=== PATIENT | female | born 1950 | race Caucasian/White ===

== ENCOUNTER 2017-10-07 17:43 | Inpatient (IN) ==
[2017-10-07] MEDS ORDERED: ceFAZolin 2 GM Premix Inj 2 GM/50 ML PIGGYBACK IV.SIG ONE (17:48)
[2017-10-07] MEDS ORDERED: Morphine Inj 4 MG/ML Vial ONE ×2 (17:48→17:51)
[2017-10-07] MEDS ORDERED: Diphtheria/Tetanus/Pertussis Vaccine Inj 0.5 ML Syringe IM ONE (17:49)
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
[2017-10-07] MEDS ORDERED: Naloxone Inj 0.4 MG/ML Vial IV.PUSH PRN (17:59)
[2017-10-07] MEDS ORDERED: Bisacodyl 10 MG Supp RECTAL PRN (17:59)
[2017-10-07] MEDS ORDERED: Post-op Orders (for Pharmacy) OTHER ONE (17:59)
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
[2017-10-07 18:09] LABS: Baso % (Auto) 0.3 % (0.0-2.0); Eos # (Auto) 0.1 th/mm3 (0.0-0.4); Eos % (Auto) 1.2 % (0.0-4.0); Hematocrit 36.7 % (35.0-46.0); Hemoglobin 12.2 gm/dL (11.6-15.3); Lymph # (Auto) 2.3 th/mm3 (1.0-4.8); Lymph % (Auto) 19.4 % (9.0-44.0); Mean Corpuscular HGB Conc 33.4 % (32.0-36.0); Mean Corpuscular Hemoglobin 28.6 pg (27.0-34.0); Mean Corpuscular Volume 85.6 fL (80.0-100.0); Mean Platelet Volume 8.4 fL (7.0-11.0); Mono # (Auto) 0.6 th/mm3 (0.0-0.9); Mono % (Auto) 5.2 % (0.0-8.0); Neut # (Auto) 8.8 th/mm3 (1.8-7.7); Neut % (Auto) 73.9 % (16.0-70.0); Platelet Count 255 th/mm3 (150-450); Red Blood Count 4.28 mil/mm3 (4.00-5.30); White Blood Count 11.8 th/mm3 (4.0-11.0)
[2017-10-07 18:22] LABS: Activated Partial Thrombo Time 23.1 sec (24.3-30.1); INR 1.1 Ratio; Prothrombin Time 10.7 sec (9.8-11.6)
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
[2017-10-07 18:42] LABS: Anion Gap 14 meq/L (5-15); Calcium 9.2 mg/dL (8.5-10.1); Carbon Dioxide 20.4 meq/L (21.0-32.0); Chloride 107 meq/L (98-107); Glomerular Filtration Rate 52 mL/min (>89); Glucose,Random 134 mg/dL (74-106); Potassium 3.4 meq/L (3.5-5.1); Sodium 141 meq/L (136-145)
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
[2017-10-07 18:48] LABS: Blood Urea Nitrogen 23 mg/dL (7-18)
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
[2017-10-07] MEDS: Sod Chloride 0.9% Inj 1,000 ML IV.CONT SCH (22:23)
[2017-10-07] MEDS: Pantoprazole Inj 40 MG Vial IV.PUSH SCH (22:24)
[2017-10-07] MEDS: Senna/Docusate Sodium 8.6/50 MG Tablet PO SCH (22:25)
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
[2017-10-07] MEDS ORDERED: Dexmedetomidine Inj 200 MCG in Sodium Chlor 0.9% Inj 48 ML IV.CONT PRN (23:36)
[2017-10-08] MEDS ORDERED: Dexmedetomidine Inj 200 MCG in Sodium Chlor 0.9% Inj 48 ML IV.CONT PRN (00:24)
[2017-10-08] MEDS: Morphine Inj 4 MG/ML Vial IV.PUSH PRN ×2 (02:15→06:35)
[2017-10-08 02:45] LABS: Bilirubin,Urine Negative (Negative); Clarity,Urine Hazy (Clear); Color,Urine Amber (Yellw/Straw); Glucose,Urine (UA) Negative (Negative); Leukocyte Esterase,Urine Negative (Negative); Mucus,Urine Few /lpf (Occasional); Nitrite,Urine Negative (Negative); Specific Gravity,Urine 1.045 (1.002-1.035); Squamous Epithelial Cell,Urine <1 /hpf (0-5)
[2017-10-08 02:47] LABS: Amphetamine Screen,Urine Neg (Neg); Barbiturate Screen,Urine Neg (Neg); Cannabinoid Screen,Urine Neg (Neg); Cocaine Screen,Urine Neg (Neg)
[2017-10-08 03:10] LABS: Opiate Screen,Urine Pos (Neg)
[2017-10-08] MEDS: Sod Chloride 0.9% Inj 1,000 ML IV.CONT SCH ×3 (04:32→23:30)
[2017-10-08 06:51] LABS: Baso % (Auto) 0.2 % (0.0-2.0); Eos % (Auto) 0.1 % (0.0-4.0); Hematocrit 31.1 % (35.0-46.0); Hemoglobin 10.4 gm/dL (11.6-15.3); Lymph # (Auto) 0.5 th/mm3 (1.0-4.8); Lymph % (Auto) 6.1 % (9.0-44.0); Mean Corpuscular HGB Conc 33.4 % (32.0-36.0); Mean Corpuscular Hemoglobin 28.4 pg (27.0-34.0); Mean Corpuscular Volume 85.1 fL (80.0-100.0); Mean Platelet Volume 8.6 fL (7.0-11.0); Mono # (Auto) 0.4 th/mm3 (0.0-0.9); Mono % (Auto) 4.7 % (0.0-8.0); Neut # (Auto) 7.3 th/mm3 (1.8-7.7); Neut % (Auto) 88.9 % (16.0-70.0); Platelet Count 166 th/mm3 (150-450); Red Blood Count 3.65 mil/mm3 (4.00-5.30); Red Cell Distribution Width 15.2 % (11.6-17.2); White Blood Count 8.3 th/mm3 (4.0-11.0)
[2017-10-08 07:16] LABS: Calcium 7.2 mg/dL (8.5-10.1); Carbon Dioxide 25.5 meq/L (21.0-32.0)
[2017-10-08] MEDS: Senna/Docusate Sodium 8.6/50 MG Tablet PO SCH ×2 (09:05→22:01)
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
--- NOTE | 2017-10-08 16:41 | MR ---
EXAM DATE: 10/08/2017 4:25 PM EDT AGE/SEX: 67 years / Female INDICATIONS: Trauma. Fractures. CLINICAL DATA: This is the patient's subsequent encounter. Patient reports that signs and symptoms h ave been present for 2 days and indicates a pain score of 4/10. MEDICAL/SURGICAL HISTORY: None. Total knee replacement, left. Total knee replacement, right. Umbilical hernia repair. Bilateral hip replacements. COMPARISON: [facility] – [place], [place] THORACIC SPINE W CONTRAST, 10/07/2017. [facility] – [place], CT CERVICAL SPINE W/O CONTRAST, 10/07/2017. . TECHNIQUE: Multiplanar, multisequence MRI of the thoracic spine was performed. FINDINGS: There is evidence of mild to moderate acute compression deformity involving the T7 vertebral body and mild acute compression deformity involving the L1 vertebral body with diffuse edema noted throughout both of these vertebral bodies. Minimal retropulsion of the posterior aspects of both vertebral bodi es is noted. There is minimal effacement of the anterior thecal sac at T7 and minimal spinal stenosis but no cord compression. T1-T2: The thecal sac has a normal diameter. No evidence of disc bulge or protrusion. T2-T3: The thecal sac has a normal diameter. No evidence of disc bulge or protrusion. T3-T4: The thecal sac has a normal diameter. No evidence of disc bulge or protrusion. T4-T5: The thecal sac has a normal diameter. No evidence of disc bulge or protrusion. T5-T6: The thecal sac has a normal diameter. No evidence of disc bulge or protrusion. T6-T7: The thecal sac has a normal diameter. No evidence of disc bulge or protrusion. T7-T8: Minimal diffuse disc bulge is noted at this level resulting in effacement of anterior thecal sac and minimal spinal stenosis but no cord compression. T8-T9: The thecal sac has a normal diameter. No evidence of disc bulge or protrusion. T9-T10: The thecal sac has a normal diameter. No evidence of disc bulge or protrusion. T10-T11: The thecal sac has a normal diameter. No evidence of disc bulge or protrusion. T11-T12: The thecal sac has a normal diameter. No evidence of disc bulge or protrusion. T12-L1: The thecal sac has a normal diameter. No evidence of disc bulge or protrusion. 1. Mild to moderate acute compression deformity involving the T7 vertebral body and mild acute compr ession deformity involving the L1 vertebral body with diffuse edema noted throughout both of these ve rtebral bodies. Minimal retropulsion of the posterior aspects of both vertebral bodies is noted. Ther e is minimal effacement of the anterior thecal sac at T7 and minimal spinal stenosis but no cord comp ression. 2. Minimal spinal stenosis secondary to minimal diffuse disc bulge at T7-8. Electronically signed by: Scooby Polo MD 10/08/2017 4:40 PM EDT
--- NOTE | 2017-10-08 16:43 | MR ---
EXAM DATE: 10/08/2017 4:22 PM EDT AGE/SEX: 67 years / Female INDICATIONS: Fracture. Trauma. CLINICAL DATA: This is the patient's subsequent encounter. Patient reports that signs and symptoms h ave been present for 2 days and indicates a pain score of 5/10. MEDICAL/SURGICAL HISTORY: None. None. COMPARISON: . TECHNIQUE: Multiplanar, multisequence MRI of the lumbar spine was performed without contrast. Patie nt was scanned in a sitting position; neutral, flexion, and extension scans were performed in the sa gittal plane. FINDINGS: MRI of the lumbar spine was performed in sagittal and axial planes. There is retrolisthesis likely re lated to facet arthritis at L2-L3 5 to 6 mm. There is a Schmorl's node on the superior endplate of L 3. There is marrow edema involving the L1 vertebral body characteristic of acute compression fracture . The conus terminates normally. Axial images were performed from T12-L1 through L5-S1. T12-L1: There is mild diffuse annular bulge of the disc. The neural foramina are clear bilaterally. There is no significant spinal canal stenosis. L1-L2: There is slight retropulsion of the L1 vertebral body causing mild stenosis. The neural maricarmen jen are clear bilaterally. L2-L3: There is mild diffuse annular bulge of the disc. The neural foramina are clear bilaterally. T here is no significant spinal canal stenosis. L3-L4: There is broad-based annular bulge of disc. There is moderate facet arthritis bilaterally wit h ligamentum flavum hypertrophy. There is moderate neural foraminal narrowing bilaterally. There is no significant spinal canal stenosis. L4-L5: There is mild annular bulge of the disc. There is moderate facet arthritis bilaterally with l igamentum flavum hypertrophy. There is moderate neural foraminal narrowing bilaterally. L5-S1: There is no evidence of disc protrusion or spinal canal stenosis. There is moderate facet art hritis bilaterally with ligamentum flavum hypertrophy. The neural foramina are clear bilaterally. Compression fracture of the L1 vertebral body with slight retropulsion as above with only mild stenos is. The patient may be a candidate for kyphoplasty if clinically indicated Electronically signed by: Josué Medley MD 10/08/2017 4:42 PM EDT
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
[2017-10-08] MEDS: Pantoprazole Inj 40 MG Vial IV.PUSH SCH (19:55)
[2017-10-09 06:19] LABS: Baso % (Auto) 0.4 % (0.0-2.0); Eos # (Auto) 0.2 th/mm3 (0.0-0.4); Eos % (Auto) 2.4 % (0.0-4.0); Hematocrit 26.6 % (35.0-46.0); Hemoglobin 9.1 gm/dL (11.6-15.3); Lymph # (Auto) 0.7 th/mm3 (1.0-4.8); Lymph % (Auto) 10.8 % (9.0-44.0); Mean Corpuscular Hemoglobin 29.1 pg (27.0-34.0); Mean Corpuscular Volume 85.7 fL (80.0-100.0); Mean Platelet Volume 8.7 fL (7.0-11.0); Mono # (Auto) 0.4 th/mm3 (0.0-0.9); Mono % (Auto) 5.2 % (0.0-8.0); Neut # (Auto) 5.5 th/mm3 (1.8-7.7); Neut % (Auto) 81.2 % (16.0-70.0); Platelet Count 130 th/mm3 (150-450); Red Blood Count 3.11 mil/mm3 (4.00-5.30); White Blood Count 6.8 th/mm3 (4.0-11.0)
[2017-10-09 06:38] LABS: Anion Gap 8 meq/L (5-15); Blood Urea Nitrogen 9 mg/dL (7-18); Carbon Dioxide 25.3 meq/L (21.0-32.0); Chloride 110 meq/L (98-107); Glomerular Filtration Rate Greater Than 89 mL/min (>89); Glucose,Random 108 mg/dL (74-106); Potassium 3.6 meq/L (3.5-5.1); Sodium 143 meq/L (136-145)
[2017-10-09] MEDS ORDERED: Morphine Inj 4 MG/ML Vial IV.PUSH PRN (07:00)
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
[2017-10-09] MEDS: Lidocaine 5% Patch T-DERMAL SCH (09:07)
[2017-10-09] MEDS: Senna/Docusate Sodium 8.6/50 MG Tablet PO SCH ×2 (09:07→20:20)
[2017-10-09] MEDS: Enoxaparin Inj 40 MG/0.4 ML Syringe SQ SCH (11:13)
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
--- NOTE | 2017-10-09 15:59 | P.PNNS ---
Subjective Interval history: 09/29: doing well, back pain with movement. denies dysesthesias to arms and legs. MRI T/L spine completed. <RodneyGabrielle - Last Filed: 10/10/17 10:08> Physical Exam Vital signs: Vital Signs 10/08/17 16:00 10/08/17 20:00 10/08/17 20:23 Temperature 98.7 F 98.6 F Pulse Rate 68 74 Respiratory Rate 18 20 Blood Pressure 111/59 L 133/60 Pulse Oximetry 96 97 97 10/09/17 00:00 10/09/17 00:07 10/09/17 04:00 Temperature 98.4 F 98.5 F Pulse Rate 74 79 Respiratory Rate 19 18 Blood Pressure 145/67 H 165/79 H Pulse Oximetry 100 98 97 10/09/17 08:00 10/09/17 09:00 10/09/17 12:00 Temperature 98.7 F 98.5 F Pulse Rate 70 87 78 Respiratory Rate 15 19 Blood Pressure 117/56 L 148/65 H Pulse Oximetry 95 95 10/09/17 15:50 Temperature Pulse Rate Respiratory Rate Blood Pressure Pulse Oximetry 98 Intake & Output 10/08/17 10/09/17 10/09/17 18:59 06:59 18:59 Intake Total 1260 / 1260 1355 / 1355 0 / 0 Output Total 900 / 900 450 / 450 Balance 1260 / 1260 455 / 455 -450 / -450 Weight 81.4 kg 85 kg Intake: IV 1260 / 1260 1105 / 1105 Precedex Inj 200 MCG In NS Inj 50 / 50 48 ML @ 0.2 MCG/KG/HR 4.07 mls/ hr IV.CONT TITRATE PRN Rx#: [id number] NS Inj 1,000 ML @ 100 mls/hr IV 1000 / 1000 1000 / 1000 .CONT .Q10H JOS Rx#:[id number] Keppra Inj 500 MG In NS Inj 100 210 / 210 105 / 105 ML @ 400 mls/hr IV.SIG Q12H JOS Rx#:[id number] Oral 250 / 250 0 / 0 Output: Urine Amount (Catheter) 900 / 900 450 / 450 Indwelling Urethral Catheter 900 / 900 450 / 450 Other: # Bowel Movements 0 Weight On Admission 76.204 kg Narrative: GENERAL:NO acute distress SKIN: Warm and dry. HEAD: Normocephalic. EYES: No scleral icterus. No injection or drainage. NECK: Dallas collar in place. No JVD or lymphadenopathy. CARDIOVASCULAR: Regular rate and rhythm without murmurs, gallops, or rubs. RESPIRATORY: Breath sounds equal bilaterally. No accessory muscle use. GASTROINTESTINAL: Abdomen soft, non-tender, nondistended. MUSCULOSKELETAL: Moves both upper and lower extremities against gravity. Neuro: alert, speech fluent. follows commands. - Urinary Catheter Management Indwelling Urethral Catheter Cath placed during this visit: yes, but has since been removed by the nurse Reason for continuing: Decision to DC catheter Insertion date: 10/07/17 Insertion time: 22:50 Removal date: 10/09/17 Removal time: 11:11 <Gabrielle Stevens - Last Filed: 10/10/17 10:08> Vital signs: Vital Signs 10/10/17 16:00 10/10/17 20:00 10/10/17 21:32 Temperature 98.4 F 98.5 F Pulse Rate 86 101 H Respiratory Rate 18 18 Blood Pressure 131/60 116/58 L Pulse Oximetry 100 95 97 10/10/17 23:54 10/11/17 04:00 10/11/17 07:48 Temperature 98.4 F 98.3 F Pulse Rate 95 H 98 H Respiratory Rate 18 18 Blood Pressure 125/59 L 112/62 Pulse Oximetry 99 95 98 10/11/17 08:00 10/11/17 12:00 Temperature 98.7 F 99 F Pulse Rate 92 H 81 Respiratory Rate 18 18 Blood Pressure 116/57 L 117/57 L Pulse Oximetry 92 L 96 Intake & Output 10/10/17 10/11/17 10/11/17 18:59 06:59 18:59 Intake Total 200 / 200 105 / 105 Balance 200 / 200 105 / 105 Weight 83.5 kg Intake: IV 200 / 200 105 / 105 Keppra Inj 500 MG In NS Inj 100 200 / 200 105 / 105 ML @ 400 mls/hr IV.SIG Q12H JOS Rx#:[id number] Other: # Voids 5 5 Date of Last Bowel Movement 10/06/17 Narrative: The patient is alert, awake and oriented Cranial nerve examination demonstrates the pupils to be equal, round, and reactive to light. Extra-ocular movements are intact with normal convergence. Facial motornormal and symmetrical.face sensation,hearing, visual acuity, taste, and olfaction can not be assessed due to the patient's neurological condition.Sternocleidomastoid and deltoid musclesasymmetrical. Neck is soft and supple with M Dallas J collar. Muscle testing revealsnormal bulk and tonewith gross normalstrength in both upper and lowerextremities Sensory examination isgrossly normal Deep tendon reflexes are1+ and symmetrical in upper andlower extremities. Bilateral plantar flexion response. Hoffmanns sign is negative. There is no clonus or other abnormal reflexes noted. Cerebellar examinationcan not be assessed due the patient's neurological condition Lungs: clear Heart: Regular rhythm and rate Skin: warm and dry - Urinary Catheter Management Indwelling Urethral Catheter Cath placed during this visit: no <Izaiah Anton - Last Filed: 10/11/17 15:28> Assessment and Plan - Assessment (1) Subarachnoid hemorrhage Code(s): I60.9 - Nontraumatic subarachnoid hemorrhage, unspecified Status: Acute (2) Thoracic spine fracture Code(s): S22.009A - Unspecified fracture of unspecified thoracic vertebra, initial encounter for closed fracture Status: Acute Qualifiers: Encounter type: initial encounter Thoracic vertebra fracture level: unspecified thoracic vertebra Fracture type: closed Fracture morphology: other fracture Qualified Code(s): S22.008A - Other fracture of unspecified thoracic vertebra, initial encounter for closed fracture (3) Fracture of lumbar spine Code(s): S32.009A - Unspecified fracture of unspecified lumbar vertebra, initial encounter for closed fracture Status: Acute Qualifiers: Encounter type: initial encounter Lumbar vertebra fracture level: unspecified lumbar vertebra Fracture type: closed Fracture morphology: unspecified fracture morphology Qualified Code(s): S32.009A - Unspecified fracture of unspecified lumbar vertebra, initial encounter for closed fracture - Plan Plan: MRI Thoracic and lumbar spine reviewed by Dr. Anton cont nonsurgical management of thoracic and lumbar fracture custom molded TLSO brace only when out of bed <Gabrielle Stevens - Last Filed: 10/10/17 10:08> - Assessment (1) Subarachnoid hemorrhage Code(s): I60.9 - Nontraumatic subarachnoid hemorrhage, unspecified Status: Acute (2) Thoracic spine fracture Code(s): S22.009A - Unspecified fracture of unspecified thoracic vertebra, initial encounter for closed fracture Status: Acute Qualifiers: Encounter type: initial encounter Thoracic vertebra fracture level: unspecified thoracic vertebra Fracture type: closed Fracture morphology: other fracture Qualified Code(s): S22.008A - Other fracture of unspecified thoracic vertebra, initial encounter for closed fracture (3) Fracture of lumbar spine Code(s): S32.009A - Unspecified fracture of unspecified lumbar vertebra, initial encounter for closed fracture Status: Acute Qualifiers: Encounter type: initial encounter Lumbar vertebra fracture level: unspecified lumbar vertebra Fracture type: closed Fracture morphology: unspecified fracture morphology Qualified Code(s): S32.009A - Unspecified fracture of unspecified lumbar vertebra, initial encounter for closed fracture - Plan Neurologically she has stabilized. Continue neuro checks in a serial fashion. Continue non surgical management for now. MRI thoracic spine showed mild to moderate acute compression deformity involving the T7 vertebral body and mild acute compression deformity involving the L1 vertebral body with diffuse edema noted throughout both of these vertebral bodies. Minimal retropulsion of the posterior aspects of both vertebral bodies is noted. There is minimal effacement of the anterior thecal sac at T7 and minimal spinal stenosis but no cord compression. 2. Minimal spinal stenosis secondary to minimal diffuse disc bulge at T7-8. Will attempt nonoperative treatment of the fracture with a thoracolubar orthosis MRI lumbar spine showeda compression fracture of the L1 vertebral body with slight retropulsion as above with only mild stenosis. The patient may be a candidate for kyphoplasty if clinically indicated Will attempt nonoperative treatment of the fracture with a thoracolubar orthosis Sacral fracture. Consult orthopedics Narcotic analgesics for pain management Pulmonary: aggressive pulmonary toilette, nasotracheal suction, and breathing treatments with nebulizers. Daily PT and OT Renal: Continue to monitor closely urine output, BUN and creatinine Endocrine: Continue to Monitor serial Acu checks and SSI as needed in detail ID continue to monitor for signs of infection Continue Protonix for stress ulcer prophylaxis Continue Chris hose and SCD's for DVT prophylaxis Caprini VTE Risk Assessment VTE Pharmacological Exception Reason: Active bleeding Caprini Risk Assessment Model: Point Value = 1 Point Value = 2 Point Value = 3 Point Value = 5 Age 41-60 Minor surgery BMI > 25 kg/m2 Swollen legs Varicose veins or History of unexplained or recurrent spontaneous Oral contraceptives or hormone replacement Sepsis (< 1 month) Serious lung disease, including pneumonia (< 1 month) Abnormal pulmonary function Acute myocardial infarction Congestive heart failure (< 1 month) History of inflammatory bowel disease Medical patient at bed rest Age 61-74 Arthroscopic surgery Major open surgery (> 45 min) Laparoscopic surgery (> 45 min) Malignancy Confined to bed (> 72 hours) Immobilizing plaster cast Central venous access Age >= 75 History of VTE Family history of VTE Factor V Leiden Prothrombin [id number] Lupus anticoagulant Anticardiolipin antibodies Elevated serum homocysteine Heparin-induced thrombocytopenia Other congenital or acquired thrombophilia Stroke (< 1 month) Elective arthroplasty Hip, pelvis, or leg fracture Acute spinal cord injury (< 1 month) Prophylaxis Regimen: Total Risk Factor Score Risk Level Prophylaxis Regimen 0-1 Low Early ambulation 2 Moderate Order ONE of the following: *Sequential Compression Device (SCD) *Heparin 5000 units SQ BID 3-4 Higher Order ONE of the following medications: *Heparin 5000 units SQ TID *Enoxaparin/Lovenox 40 mg SQ daily (WT < 150 kg, CrCl > 30 mL/min) *Enoxaparin/Lovenox 30 mg SQ daily (WT < 150 kg, CrCl > 10-29 mL/min) *Enoxaparin/Lovenox 30 mg SQ BID (WT < 150 kg, CrCl > 30 mL/min) AND/OR *Sequential Compression Device (SCD) 5 or more Highest Order ONE of the following medications: *Heparin 5000 units SQ TID (Preferred with Epidurals) *Enoxaparin/Lovenox 40 mg SQ daily (WT < 150 kg, CrCl > 30 mL/min) *Enoxaparin/Lovenox 30 mg SQ daily (WT < 150 kg, CrCl > 10-29 mL/min) *Enoxaparin/Lovenox 30 mg SQ BID (WT < 150 kg, CrCl > 30 mL/min) AND *Sequential Compression Device (SCD) Further recommendations will be provided depending on the patient's clinical evaluation and follow up studies. The exam, history, and the medical decision-making described in the above note were completed with the assistance of the mid-level provider. I reviewed and agree with the findings presented. I attest that I had a [id number] encounter with the patient on the same day, and personally performed and documented my assessment and findings in the medical record. <Izaiah Anton - Last Filed: 10/11/17 15:28>
[2017-10-09] MEDS: Pantoprazole Inj 40 MG Vial IV.PUSH SCH (19:29)
[2017-10-10 05:00] LABS: Baso % (Auto) 0.4 % (0.0-2.0); Eos # (Auto) 0.2 th/mm3 (0.0-0.4); Eos % (Auto) 2.9 % (0.0-4.0); Hematocrit 25.5 % (35.0-46.0); Hemoglobin 8.7 gm/dL (11.6-15.3); Lymph # (Auto) 0.7 th/mm3 (1.0-4.8); Lymph % (Auto) 10.9 % (9.0-44.0); Mean Corpuscular HGB Conc 33.9 % (32.0-36.0); Mean Corpuscular Volume 85.4 fL (80.0-100.0); Mean Platelet Volume 7.9 fL (7.0-11.0); Mono # (Auto) 0.4 th/mm3 (0.0-0.9); Mono % (Auto) 5.7 % (0.0-8.0); Neut % (Auto) 80.1 % (16.0-70.0); Platelet Count 131 th/mm3 (150-450); Red Blood Count 2.99 mil/mm3 (4.00-5.30); White Blood Count 6.3 th/mm3 (4.0-11.0)
[2017-10-10 05:25] LABS: Anion Gap 6 meq/L (5-15); Blood Urea Nitrogen 7 mg/dL (7-18); Calcium 8.2 mg/dL (8.5-10.1); Carbon Dioxide 28.8 meq/L (21.0-32.0); Chloride 109 meq/L (98-107); Glomerular Filtration Rate Greater Than 89 mL/min (>89); Glucose,Random 99 mg/dL (74-106); Potassium 3.3 meq/L (3.5-5.1); Sodium 144 meq/L (136-145)
[2017-10-10] MEDS: Enoxaparin Inj 40 MG/0.4 ML Syringe SQ SCH (08:26)
[2017-10-10] MEDS: Senna/Docusate Sodium 8.6/50 MG Tablet PO SCH ×2 (08:26→21:00)
[2017-10-10] MEDS: Lidocaine 5% Patch T-DERMAL SCH (08:27)
--- NOTE | 2017-10-10 10:07 | P.PNNS ---
Subjective Interval history: 10/10: reports of mid back pain, denies radiating pain. awaiting custom TLSO brace to be delivered today. <Gabrielle Stevens - Last Filed: 10/10/17 12:14> Physical Exam Vital signs: Vital Signs 10/09/17 12:00 10/09/17 15:50 10/09/17 16:00 Temperature 98.5 F 98.2 F Pulse Rate 78 95 H Respiratory Rate 19 18 Blood Pressure 148/65 H 136/63 Pulse Oximetry 95 98 98 10/09/17 20:00 10/09/17 20:24 10/10/17 00:00 Temperature 98.4 F 98.3 F Pulse Rate 96 H 80 Respiratory Rate 17 19 Blood Pressure 137/61 102/51 L Pulse Oximetry 96 95 96 10/10/17 04:00 10/10/17 08:00 10/10/17 08:11 Temperature 98.4 F 98.3 F Pulse Rate 94 H 69 Respiratory Rate 15 16 Blood Pressure 114/62 Pulse Oximetry 95 97 96 10/10/17 08:15 Temperature Pulse Rate 71 Respiratory Rate Blood Pressure Pulse Oximetry Intake & Output 10/09/17 10/10/17 10/10/17 18:59 06:59 18:59 Intake Total 825 / 825 105 / 105 Output Total 450 / 450 1000 / 1000 Balance 375 / 375 -895 / -895 Weight 83.2 kg Intake: IV 105 / 105 105 / 105 Keppra Inj 500 MG In NS Inj 100 105 / 105 105 / 105 ML @ 400 mls/hr IV.SIG Q12H JOS Rx#:[id number] Oral 720 / 720 Output: Urine 1000 / 1000 Urine Amount (Catheter) 450 / 450 Indwelling Urethral Catheter 450 / 450 Other: # Bowel Movements 0 Narrative: GENERAL:NO acute distress SKIN: Warm and dry. HEAD: Normocephalic. EYES: No scleral icterus. No injection or drainage. NECK: Rincon collar in place. No JVD or lymphadenopathy. CARDIOVASCULAR: Regular rate and rhythm without murmurs, gallops, or rubs. RESPIRATORY: Breath sounds equal bilaterally. No accessory muscle use. GASTROINTESTINAL: Abdomen soft, non-tender, nondistended. MUSCULOSKELETAL: Both upper extremities bandaged. Moves both upper and lower extremities against gravity. Neuro: Awake, alert. pupils equal. facial motor symmetric. No ankle clonus. - Urinary Catheter Management Indwelling Urethral Catheter Cath placed during this visit: yes, but has since been removed by the nurse Reason for continuing: Decision to DC catheter Insertion date: 10/07/17 Insertion time: 22:50 Removal date: 10/09/17 Removal time: 11:11 <Gabrielle Stevens - Last Filed: 10/10/17 12:14> Vital signs: Vital Signs 10/10/17 16:00 10/10/17 20:00 10/10/17 21:32 Temperature 98.4 F 98.5 F Pulse Rate 86 101 H Respiratory Rate 18 18 Blood Pressure 131/60 116/58 L Pulse Oximetry 100 95 97 10/10/17 23:54 10/11/17 04:00 10/11/17 07:48 Temperature 98.4 F 98.3 F Pulse Rate 95 H 98 H Respiratory Rate 18 18 Blood Pressure 125/59 L 112/62 Pulse Oximetry 99 95 98 10/11/17 08:00 10/11/17 12:00 Temperature 98.7 F 99 F Pulse Rate 92 H 81 Respiratory Rate 18 18 Blood Pressure 116/57 L 117/57 L Pulse Oximetry 92 L 96 Intake & Output 10/10/17 10/11/17 10/11/17 18:59 06:59 18:59 Intake Total 200 / 200 105 / 105 Balance 200 / 200 105 / 105 Weight 83.5 kg Intake: IV 200 / 200 105 / 105 Keppra Inj 500 MG In NS Inj 100 200 / 200 105 / 105 ML @ 400 mls/hr IV.SIG Q12H JOS Rx#:[id number] Other: # Voids 5 5 Date of Last Bowel Movement 10/06/17 Narrative: The patient is alert, awake. Comfortable, in no acute distress. Speech is fluent. Cranial nerve examination: pupils to be equal, round and reactive to light. Extra-ocular movements are intact. Facial motor and sensory function are normal and symmetrical. Gross hearing appears intact. Sternocleidomastoid and trapezius muscles are symmetrical. Other cranial nerves are intact. Neck is braced with Rincon J C collar Muscle strength is normal in all muscle groups of both upper and lower extremities. Sensory examination is intact to light touch and pin prick in both the upper and lower extremities. Deep tendon reflexes are symmetrical in both upper and lower extremities. There is a bilateral plantar flexion response. Cerebellar examination is unremarkable, without deficits. Lungs are clear Heart regular rhythm is regular rate Skin warm and dry - Urinary Catheter Management Indwelling Urethral Catheter Cath placed during this visit: no <Izaiah Anton - Last Filed: 10/11/17 15:31> Assessment and Plan - Assessment (1) Subarachnoid hemorrhage Code(s): I60.9 - Nontraumatic subarachnoid hemorrhage, unspecified Status: Acute (2) Thoracic spine fracture Code(s): S22.009A - Unspecified fracture of unspecified thoracic vertebra, initial encounter for closed fracture Status: Acute (3) Fracture of lumbar spine Code(s): S32.009A - Unspecified fracture of unspecified lumbar vertebra, initial encounter for closed fracture Status: Acute - Plan Plan: cont nonsurgical management of thoracic and lumbar fracture awaiting custom molded TLSO brace, don only when out of bed start mobilizing OOB once TLSO delivered clear to dc to rehab from [facility] standpoint once custom TLSO obtained f/u Dr. Anton office in 4-6 weeks, f/u xrays <Gabrielle Stevens - Last Filed: 10/10/17 12:14> - Assessment (1) Subarachnoid hemorrhage Code(s): I60.9 - Nontraumatic subarachnoid hemorrhage, unspecified Status: Acute (2) Thoracic spine fracture Code(s): S22.009A - Unspecified fracture of unspecified thoracic vertebra, initial encounter for closed fracture Status: Acute Qualifiers: Encounter type: initial encounter Thoracic vertebra fracture level: unspecified thoracic vertebra Fracture type: closed Fracture morphology: other fracture Qualified Code(s): S22.008A - Other fracture of unspecified thoracic vertebra, initial encounter for closed fracture (3) Fracture of lumbar spine Code(s): S32.009A - Unspecified fracture of unspecified lumbar vertebra, initial encounter for closed fracture Status: Acute Qualifiers: Encounter type: initial encounter Lumbar vertebra fracture level: unspecified lumbar vertebra Fracture type: closed Fracture morphology: unspecified fracture morphology Qualified Code(s): S32.009A - Unspecified fracture of unspecified lumbar vertebra, initial encounter for closed fracture - Plan (1) Subarachnoid hemorrhage Code(s): I60.9 - Nontraumatic subarachnoid hemorrhage, unspecified Status: Acute (2) Thoracic spine fracture Code(s): S22.009A - Unspecified fracture of unspecified thoracic vertebra, initial encounter for closed fracture Status: Acute Qualifiers: Encounter type: initial encounter Thoracic vertebra fracture level: unspecified thoracic vertebra Fracture type: closed Fracture morphology: other fracture Qualified Code(s): S22.008A - Other fracture of unspecified thoracic vertebra, initial encounter for closed fracture (3) Fracture of lumbar spine Code(s): S32.009A - Unspecified fracture of unspecified lumbar vertebra, initial encounter for closed fracture Status: Acute Qualifiers: Encounter type: initial encounter Lumbar vertebra fracture level: unspecified lumbar vertebra Fracture type: closed Fracture morphology: unspecified fracture morphology Qualified Code(s): S32.009A - Unspecified fracture of unspecified lumbar vertebra, initial encounter for closed fracture - Plan Neurologically she has stabilized. Continue neuro checks in a serial fashion. Continue non surgical management. Up in chair with thoracolumbar orthosis MRI thoracic spine showed mild to moderate acute compression deformity involving the T7 vertebral body and mild acute compression deformity involving the L1 vertebral body with diffuse edema noted throughout both of these vertebral bodies. Minimal retropulsion of the posterior aspects of both vertebral bodies is noted. There is minimal effacement of the anterior thecal sac at T7 and minimal spinal stenosis but no cord compression. 2. Minimal spinal stenosis secondary to minimal diffuse disc bulge at T7-8. Will attempt nonoperative treatment of the fracture with a thoracolubar orthosis MRI lumbar spine showeda compression fracture of the L1 vertebral body with slight retropulsion as above with only mild stenosis. The patient may be a candidate for kyphoplasty if clinically indicated Will attempt nonoperative treatment of the fracture with a thoracolubar orthosis Sacral fracture. Consult orthopedics Narcotic analgesics for pain management Pulmonary: aggressive pulmonary toilette, nasotracheal suction, and breathing treatments with nebulizers. Daily PT and OT Renal: Continue to monitor closely urine output, BUN and creatinine Endocrine: Continue to Monitor serial Acu checks and SSI as needed in detail ID continue to monitor for signs of infection Continue Protonix for stress ulcer prophylaxis Continue Chris hose and SCD's for DVT prophylaxis Caprini VTE Risk Assessment VTE Pharmacological Exception Reason: Active bleeding Caprini Risk Assessment Model: Point Value = 1 Point Value = 2 Point Value = 3 Point Value = 5 Age 41-60 Minor surgery BMI > 25 kg/m2 Swollen legs Varicose veins or History of unexplained or recurrent spontaneous Oral contraceptives or hormone replacement Sepsis (< 1 month) Serious lung disease, including pneumonia (< 1 month) Abnormal pulmonary function Acute myocardial infarction Congestive heart failure (< 1 month) History of inflammatory bowel disease Medical patient at bed rest Age 61-74 Arthroscopic surgery Major open surgery (> 45 min) Laparoscopic surgery (> 45 min) Malignancy Confined to bed (> 72 hours) Immobilizing plaster cast Central venous access Age >= 75 History of VTE Family history of VTE Factor V Leiden Prothrombin [id number] Lupus anticoagulant Anticardiolipin antibodies Elevated serum homocysteine Heparin-induced thrombocytopenia Other congenital or acquired thrombophilia Stroke (< 1 month) Elective arthroplasty Hip, pelvis, or leg fracture Acute spinal cord injury (< 1 month) Prophylaxis Regimen: Total Risk Factor Score Risk Level Prophylaxis Regimen 0-1 Low Early ambulation 2 Moderate Order ONE of the following: *Sequential Compression Device (SCD) *Heparin 5000 units SQ BID 3-4 Higher Order ONE of the following medications: *Heparin 5000 units SQ TID *Enoxaparin/Lovenox 40 mg SQ daily (WT < 150 kg, CrCl > 30 mL/min) *Enoxaparin/Lovenox 30 mg SQ daily (WT < 150 kg, CrCl > 10-29 mL/min) *Enoxaparin/Lovenox 30 mg SQ BID (WT < 150 kg, CrCl > 30 mL/min) AND/OR *Sequential Compression Device (SCD) 5 or more Highest Order ONE of the following medications: *Heparin 5000 units SQ TID (Preferred with Epidurals) *Enoxaparin/Lovenox 40 mg SQ daily (WT < 150 kg, CrCl > 30 mL/min) *Enoxaparin/Lovenox 30 mg SQ daily (WT < 150 kg, CrCl > 10-29 mL/min) *Enoxaparin/Lovenox 30 mg SQ BID (WT < 150 kg, CrCl > 30 mL/min) AND *Sequential Compression Device (SCD) The exam, history, and the medical decision-making described in the above note were completed with the assistance of the mid-level provider. I reviewed and agree with the findings presented. I attest that I had a [id number] encounter with the patient on the same day, and personally performed and documented my assessment and findings in the medical record. <Izaiah Anton - Last Filed: 10/11/17 15:31>
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
[2017-10-11 06:52] LABS: Baso % (Auto) 0.6 % (0.0-2.0); Eos # (Auto) 0.2 th/mm3 (0.0-0.4); Eos % (Auto) 3.2 % (0.0-4.0); Hematocrit 24.2 % (35.0-46.0); Hemoglobin 8.3 gm/dL (11.6-15.3); Lymph # (Auto) 0.8 th/mm3 (1.0-4.8); Lymph % (Auto) 13.3 % (9.0-44.0); Mean Corpuscular HGB Conc 34.2 % (32.0-36.0); Mean Platelet Volume 8.2 fL (7.0-11.0); Mono # (Auto) 0.4 th/mm3 (0.0-0.9); Mono % (Auto) 6.5 % (0.0-8.0); Neut # (Auto) 4.5 th/mm3 (1.8-7.7); Neut % (Auto) 76.4 % (16.0-70.0); Platelet Count 155 th/mm3 (150-450); Red Blood Count 2.85 mil/mm3 (4.00-5.30); Red Cell Distribution Width 14.7 % (11.6-17.2); White Blood Count 5.8 th/mm3 (4.0-11.0)
[2017-10-11 07:16] LABS: Albumin 2.5 g/dL (3.4-5.0); Anion Gap 6 meq/L (5-15); Aspartate Aminotransferase 14 U/L (15-37); Blood Urea Nitrogen 9 mg/dL (7-18); Calcium 8.4 mg/dL (8.5-10.1); Carbon Dioxide 30.2 meq/L (21.0-32.0); Chloride 107 meq/L (98-107); Glomerular Filtration Rate Greater Than 89 mL/min (>89); Glucose,Random 106 mg/dL (74-106); Magnesium 2.3 mg/dL (1.5-2.5); Potassium 3.5 meq/L (3.5-5.1); Sodium 143 meq/L (136-145)
[2017-10-11 07:19] LABS: Alanine Aminotransferase 18 U/L (10-53); Alkaline Phosphatase 50 U/L (45-117); Total Protein 6.1 g/dL (6.4-8.2)
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
[2017-10-11] MEDS: Senna/Docusate Sodium 8.6/50 MG Tablet PO SCH ×2 (09:39→20:22)
[2017-10-11] MEDS: Enoxaparin Inj 40 MG/0.4 ML Syringe SQ SCH (09:40)
[2017-10-11] MEDS: Lidocaine 5% Patch T-DERMAL SCH (09:40)
--- NOTE | 2017-10-11 12:12 | P.PNNS ---
Subjective Interval history: 10/11: eager for rehab, stable back pain. <Gabrielle Stevens - Last Filed: 10/11/17 12:12> Physical Exam Vital signs: Vital Signs 10/10/17 15:10 10/10/17 16:00 10/10/17 20:00 Temperature 98.4 F 98.5 F Pulse Rate 86 101 H Respiratory Rate 18 18 18 Blood Pressure 131/60 116/58 L Pulse Oximetry 100 95 10/10/17 21:32 10/10/17 23:54 10/11/17 04:00 Temperature 98.4 F 98.3 F Pulse Rate 95 H 98 H Respiratory Rate 18 18 Blood Pressure 125/59 L 112/62 Pulse Oximetry 97 99 95 10/11/17 07:48 10/11/17 08:00 Temperature 98.7 F Pulse Rate 92 H Respiratory Rate 18 Blood Pressure 116/57 L Pulse Oximetry 98 92 L Intake & Output 10/10/17 10/11/17 10/11/17 18:59 06:59 18:59 Intake Total 200 / 200 105 / 105 Balance 200 / 200 105 / 105 Weight 83.5 kg Intake: IV 200 / 200 105 / 105 Keppra Inj 500 MG In NS Inj 100 200 / 200 105 / 105 ML @ 400 mls/hr IV.SIG Q12H JOS Rx#:[id number] Other: # Voids 5 5 Date of Last Bowel Movement 10/06/17 Narrative: GENERAL:NO acute distress SKIN: Warm and dry. HEAD: Normocephalic. EYES: No scleral icterus. No injection or drainage. NECK: [place] collar in place. No JVD or lymphadenopathy. CARDIOVASCULAR: Regular rate and rhythm without murmurs, gallops, or rubs. RESPIRATORY: Breath sounds equal bilaterally. No accessory muscle use. GASTROINTESTINAL: Abdomen soft, non-tender, nondistended. MUSCULOSKELETAL: Both upper extremities bandaged. Moves both upper and lower extremities against gravity. Neuro: Awake, alert. pupils equal. facial motor symmetric. No ankle clonus. - Urinary Catheter Management Indwelling Urethral Catheter Cath placed during this visit: yes, but has since been removed by the nurse Reason for continuing: Decision to DC catheter Insertion date: 10/07/17 Insertion time: 22:50 Removal date: 10/09/17 Removal time: 11:11 <Gabrielle Stevens - Last Filed: 10/11/17 12:12> Vital signs: Vital Signs 10/10/17 16:00 10/10/17 20:00 10/10/17 21:32 Temperature 98.4 F 98.5 F Pulse Rate 86 101 H Respiratory Rate 18 18 Blood Pressure 131/60 116/58 L Pulse Oximetry 100 95 97 10/10/17 23:54 10/11/17 04:00 10/11/17 07:48 Temperature 98.4 F 98.3 F Pulse Rate 95 H 98 H Respiratory Rate 18 18 Blood Pressure 125/59 L 112/62 Pulse Oximetry 99 95 98 10/11/17 08:00 10/11/17 12:00 Temperature 98.7 F 99 F Pulse Rate 92 H 81 Respiratory Rate 18 18 Blood Pressure 116/57 L 117/57 L Pulse Oximetry 92 L 96 Intake & Output 10/10/17 10/11/17 10/11/17 18:59 06:59 18:59 Intake Total 200 / 200 105 / 105 Balance 200 / 200 105 / 105 Weight 83.5 kg Intake: IV 200 / 200 105 / 105 Keppra Inj 500 MG In NS Inj 100 200 / 200 105 / 105 ML @ 400 mls/hr IV.SIG Q12H JOS Rx#:[id number] Other: # Voids 5 5 Date of Last Bowel Movement 10/06/17 Narrative: Ms Covarrubias is alert, awake. Comfortable, in no acute distress. Speech is fluent. Cranial nerve examination: pupils to be equal, round and reactive to light. Extra-ocular movements are intact. Facial motor and sensory function are normal and symmetrical. Gross hearing appears intact. Sternocleidomastoid and trapezius muscles are symmetrical. Other cranial nerves are intact. Neck is soft and supple with a good range of motion without pain. Muscle strength is normal in all muscle groups of both upper and lower extremities. Sensory examination is intact to light touch and pin prick in both the upper and lower extremities. Deep tendon reflexes are symmetrical in both upper and lower extremities. There is a bilateral plantar flexion response. Cerebellar examination is unremarkable, without deficits. Lungs are clear Heart regular rhythm is regular rate Skin warm and dry - Urinary Catheter Management Indwelling Urethral Catheter Cath placed during this visit: no <Izaiah Anton - Last Filed: 10/11/17 15:35> Assessment and Plan - Assessment (1) Subarachnoid hemorrhage Code(s): I60.9 - Nontraumatic subarachnoid hemorrhage, unspecified Status: Acute (2) Thoracic spine fracture Code(s): S22.009A - Unspecified fracture of unspecified thoracic vertebra, initial encounter for closed fracture Status: Acute Qualifiers: Encounter type: initial encounter Thoracic vertebra fracture level: unspecified thoracic vertebra Fracture type: closed Fracture morphology: other fracture Qualified Code(s): S22.008A - Other fracture of unspecified thoracic vertebra, initial encounter for closed fracture (3) Fracture of lumbar spine Code(s): S32.009A - Unspecified fracture of unspecified lumbar vertebra, initial encounter for closed fracture Status: Acute Qualifiers: Encounter type: initial encounter Lumbar vertebra fracture level: unspecified lumbar vertebra Fracture type: closed Fracture morphology: unspecified fracture morphology Qualified Code(s): S32.009A - Unspecified fracture of unspecified lumbar vertebra, initial encounter for closed fracture - Plan Plan: cont nonsurgical management of thoracic and lumbar fracture TLSO when out of bed clear to dc to rehab from [facility] standpoint f/u Dr. Anton office in 4-6 weeks, f/u xrays <Gabrielle Stevens - Last Filed: 10/11/17 12:12> - Assessment (1) Subarachnoid hemorrhage Code(s): I60.9 - Nontraumatic subarachnoid hemorrhage, unspecified Status: Acute (2) Thoracic spine fracture Code(s): S22.009A - Unspecified fracture of unspecified thoracic vertebra, initial encounter for closed fracture Status: Acute Qualifiers: Encounter type: initial encounter Thoracic vertebra fracture level: unspecified thoracic vertebra Fracture type: closed Fracture morphology: other fracture Qualified Code(s): S22.008A - Other fracture of unspecified thoracic vertebra, initial encounter for closed fracture (3) Fracture of lumbar spine Code(s): S32.009A - Unspecified fracture of unspecified lumbar vertebra, initial encounter for closed fracture Status: Acute Qualifiers: Encounter type: initial encounter Lumbar vertebra fracture level: unspecified lumbar vertebra Fracture type: closed Fracture morphology: unspecified fracture morphology Qualified Code(s): S32.009A - Unspecified fracture of unspecified lumbar vertebra, initial encounter for closed fracture - Plan (1) Subarachnoid hemorrhage Code(s): I60.9 - Nontraumatic subarachnoid hemorrhage, unspecified Status: Acute (2) Thoracic spine fracture Code(s): S22.009A - Unspecified fracture of unspecified thoracic vertebra, initial encounter for closed fracture Status: Acute Qualifiers: Encounter type: initial encounter Thoracic vertebra fracture level: unspecified thoracic vertebra Fracture type: closed Fracture morphology: other fracture Qualified Code(s): S22.008A - Other fracture of unspecified thoracic vertebra, initial encounter for closed fracture (3) Fracture of lumbar spine Code(s): S32.009A - Unspecified fracture of unspecified lumbar vertebra, initial encounter for closed fracture Status: Acute Qualifiers: Encounter type: initial encounter Lumbar vertebra fracture level: unspecified lumbar vertebra Fracture type: closed Fracture morphology: unspecified fracture morphology Qualified Code(s): S32.009A - Unspecified fracture of unspecified lumbar vertebra, initial encounter for closed fracture - Plan Neurologically she has stabilized. Continue neuro checks in a serial fashion. Continue non surgical management for now. MRI thoracic spine showed mild to moderate acute compression deformity involving the T7 vertebral body and mild acute compression deformity involving the L1 vertebral body with diffuse edema noted throughout both of these vertebral bodies. Minimal retropulsion of the posterior aspects of both vertebral bodies is noted. There is minimal effacement of the anterior thecal sac at T7 and minimal spinal stenosis but no cord compression. 2. Minimal spinal stenosis secondary to minimal diffuse disc bulge at T7-8. Continue nonoperative treatment of the fracture with a thoracolubar orthosis MRI lumbar spine showeda compression fracture of the L1 vertebral body with slight retropulsion as above with only mild stenosis. The patient may be a candidate for kyphoplasty if clinically indicated Continue nonoperative treatment of the fracture with a thoracolubar orthosis SCALP laceration Left savanah to scalp. Wash daily with soap and water. Recommend removal in 10 -14 days NASAL FRACTURES OMFS consulted Awaiting plan care for nasal fractures LEFT pubic bone and sacral fxs w/ hemorrhage Orthopedics consulted PT and OT ordered Await weightbearing status from orthopedics RIGHT 2nd metacarpal fx (non-op) LEFT 5th metacarpal fx (non-op) Hand surgery consulted and assisting in management and care Nonoperative management at this time Narcotic analgesics for pain management Pulmonary: aggressive pulmonary toilette, nasotracheal suction, and breathing treatments with nebulizers. Daily PT and OT Renal: Continue to monitor closely urine output, BUN and creatinine Endocrine: Continue to Monitor serial Acu checks and SSI as needed in detail ID continue to monitor for signs of infection Continue Protonix for stress ulcer prophylaxis Continue Chris hose and SCD's for DVT prophylaxis The exam, history, and the medical decision-making described in the above note were completed with the assistance of the mid-level provider. I reviewed and agree with the findings presented. I attest that I had a [id number] encounter with the patient on the same day, and personally performed and documented my assessment and findings in the medical record. <Izaiah Anton - Last Filed: 10/11/17 15:35>
[2017-10-11] MEDS: Melatonin 5 MG Tablet PO PRN (20:22)
--- NOTE | 2017-10-12 07:49 | P.PNOP ---
Subjective Interval history: patient was seen on 10/08. Physical Exam Vital signs: Vital Signs 10/11/17 07:48 10/11/17 08:00 10/11/17 12:00 Temperature 98.7 F 99 F Pulse Rate 92 H 81 Respiratory Rate 18 18 Blood Pressure 116/57 L 117/57 L Pulse Oximetry 98 92 L 96 10/11/17 16:00 10/11/17 20:00 10/11/17 20:23 Temperature 98.6 F 98.3 F Pulse Rate 83 80 80 Respiratory Rate 18 17 Blood Pressure 131/64 120/69 Pulse Oximetry 94 L 96 10/12/17 00:00 10/12/17 04:00 Temperature 98.0 F 98.2 F Pulse Rate 98 H 92 H Respiratory Rate 18 18 Blood Pressure 136/74 111/63 Pulse Oximetry 94 L 95 Intake & Output 10/11/17 10/12/17 10/12/17 18:59 06:59 18:59 Intake Total 1460 / 1460 Balance 1460 / 1460 Weight 83.5 kg Intake: IV 105 / 105 Keppra Inj 500 MG In NS Inj 100 105 / 105 ML @ 400 mls/hr IV.SIG Q12H JOS Rx#:[id number] Oral 1355 / 1355 Other: # Voids 8 4 Date of Last Bowel Movement 10/06/17 - Urinary Catheter Management Indwelling Urethral Catheter Cath placed during this visit: yes, but has since been removed by the nurse Reason for continuing: Decision to DC catheter Insertion date: 10/07/17 Insertion time: 22:50 Removal date: 10/09/17 Removal time: 11:11 Results - Labs CBC & Chem 7: 10/11/17 06:02 10/11/17 06:02 Assessment and Plan - Assessment and Plan s/p sacral fx and L pubic rami fx h/o bilateral PIETER - intact Protected WB bilat LE pain control f/up dr. goff 2 weeks
--- NOTE | 2017-10-12 08:27 | P.PNNPSY ---
- Progress Notes/Response to Treatment Premorbid Psychological Status: Premorbid Cognitive, Emotional and Behavioral Status: Stable. The patient has high school years of education and a solid work history prior to this injury, now retired. The patient has no prior psychiatric difficulties, as described above. Substance abuse history is unremarkable. Behavioral Reactions of Patient and Family/Support System: Stable. The patients family is experiencing ongoing issues of adjustment given the nature of the injury, and this aspect of recovery will require ongoing monitoring. Emotional/Behavioral Status of Patient and Family/Support System: Stable. Pertinent issues, if appropriate to this patients clinical care, are described in detail above. Maximizing Acute Care Outcome: It is recommended that the patient be monitored for emergent behavioral impulsivity as the medical condition evolves. This patients neuropathological challenges may limit rehabilitation potential going forward, and these challenges will require specialized therapeutic skills to maximize outcome. Additionally, the patients family is experiencing ongoing issues of adjustment given the traumatic nature of the injury, and they may benefit from ongoing psychological assistance. At this point in the recovery process, the patient does have cognitive capacity as the patient is able to understand a situation and its likely consequences, and she is able to manipulate information rationally. Cognitive capacity will be assessed throughout the recovery process. Anticipated Problems: Ongoing areas of concern will include behavioral impulsivity, lack of insight and judgment, which is expected to improve with time and treatment. Presently , the patient is neurobehaviorally improving. Treatment Plan: This clinician will continue to follow with you throughout the course of this patients critical care treatment, and I will be available to meet with the patients family/support system to facilitate their understanding and the ongoing care of their family member. The goals of neuropsychological intervention shall be both educational and supportive to the family/support system as is deemed clinically appropriate. [place] COG Scale: Level VII Disinhibition Score: 17.50 Aggression Score: 14.00 Lability Score: 14.00 Agitated Behavior Total Score: 16 Impression: Patient is 67 year old woman s/p complicated mild TBI 2T [facility] [place] 10[place]07/[place]. Progress Note Narrative: PTD 5. The patient is neurobehaviorally improving. She is at [place]. She is anxious to transfer to rehab. No issues of agitation/restlessness with recent ABS of 16 (17.5,14,14). I will follow. - Diagnosis (1) Mild major neurocognitive disorder as late effect of traumatic brain injury without behavioral disturbance Status: Acute
[2017-10-12] MEDS ORDERED: Bisacodyl 10 MG Supp RECTAL ONE (08:30)
[2017-10-12] MEDS: Lidocaine 5% Patch T-DERMAL SCH (09:40)
[2017-10-12] MEDS: Enoxaparin Inj 40 MG/0.4 ML Syringe SQ SCH (09:40)
[2017-10-12] MEDS: Senna/Docusate Sodium 8.6/50 MG Tablet PO SCH ×2 (09:41→20:32)
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
--- NOTE | 2017-10-12 15:48 | P.PNNS ---
Subjective Interval history: 10/12: reports back pain a bit better today, no new neuro complaints. Physical Exam Vital signs: Vital Signs 10/11/17 16:00 10/11/17 20:00 10/11/17 20:23 Temperature 98.6 F 98.3 F Pulse Rate 83 80 80 Respiratory Rate 18 17 Blood Pressure 131/64 120/69 Pulse Oximetry 94 L 96 10/12/17 00:00 10/12/17 04:00 10/12/17 08:00 Temperature 98.0 F 98.2 F 98.1 F Pulse Rate 98 H 92 H 92 H Respiratory Rate 18 18 16 Blood Pressure 136/74 111/63 120/57 L Pulse Oximetry 94 L 95 93 L 10/12/17 12:00 Temperature 97.2 F L Pulse Rate 86 Respiratory Rate 16 Blood Pressure 115/55 L Pulse Oximetry 98 Intake & Output 10/11/17 10/12/17 10/12/17 18:59 06:59 18:59 Intake Total 1460 / 1460 105 / 105 Balance 1460 / 1460 105 / 105 Weight 83.5 kg Intake: IV 105 / 105 105 / 105 Keppra Inj 500 MG In NS Inj 100 105 / 105 105 / 105 ML @ 400 mls/hr IV.SIG Q12H JOS Rx#:[id number] Oral 1355 / 1355 Other: # Voids 8 4 Date of Last Bowel Movement 10/06/17 10/06/17 Narrative: Awake, alert. conversing well both upper extremities bandaged moved both upper extremities off the bed Moved lower extremities with good strength - Urinary Catheter Management Indwelling Urethral Catheter Cath placed during this visit: yes, but has since been removed by the nurse Reason for continuing: Decision to DC catheter Insertion date: 10/07/17 Insertion time: 22:50 Removal date: 10/09/17 Removal time: 11:11 Assessment and Plan - Assessment (1) Subarachnoid hemorrhage Code(s): I60.9 - Nontraumatic subarachnoid hemorrhage, unspecified Status: Acute (2) Thoracic spine fracture Code(s): S22.009A - Unspecified fracture of unspecified thoracic vertebra, initial encounter for closed fracture Status: Acute Qualifiers: Encounter type: initial encounter Thoracic vertebra fracture level: unspecified thoracic vertebra Fracture type: closed Fracture morphology: other fracture Qualified Code(s): S22.008A - Other fracture of unspecified thoracic vertebra, initial encounter for closed fracture (3) Fracture of lumbar spine Code(s): S32.009A - Unspecified fracture of unspecified lumbar vertebra, initial encounter for closed fracture Status: Acute Qualifiers: Encounter type: initial encounter Lumbar vertebra fracture level: unspecified lumbar vertebra Fracture type: closed Fracture morphology: unspecified fracture morphology Qualified Code(s): S32.009A - Unspecified fracture of unspecified lumbar vertebra, initial encounter for closed fracture - Plan (1) Subarachnoid hemorrhage Code(s): I60.9 - Nontraumatic subarachnoid hemorrhage, unspecified Status: Acute (2) Thoracic spine fracture Code(s): S22.009A - Unspecified fracture of unspecified thoracic vertebra, initial encounter for closed fracture Status: Acute Qualifiers: Encounter type: initial encounter Thoracic vertebra fracture level: unspecified thoracic vertebra Fracture type: closed Fracture morphology: other fracture Qualified Code(s): S22.008A - Other fracture of unspecified thoracic vertebra, initial encounter for closed fracture (3) Fracture of lumbar spine Code(s): S32.009A - Unspecified fracture of unspecified lumbar vertebra, initial encounter for closed fracture Status: Acute Qualifiers: Encounter type: initial encounter Lumbar vertebra fracture level: unspecified lumbar vertebra Fracture type: closed Fracture morphology: unspecified fracture morphology Qualified Code(s): S32.009A - Unspecified fracture of unspecified lumbar vertebra, initial encounter for closed fracture - Plan Neurologically she has stabilized. Continue neuro checks in a serial fashion. Continue non surgical management for now. MRI thoracic spine showed mild to moderate acute compression deformity involving the T7 vertebral body and mild acute compression deformity involving the L1 vertebral body with diffuse edema noted throughout both of these vertebral bodies. Minimal retropulsion of the posterior aspects of both vertebral bodies is noted. There is minimal effacement of the anterior thecal sac at T7 and minimal spinal stenosis but no cord compression. 2. Minimal spinal stenosis secondary to minimal diffuse disc bulge at T7-8. Continue nonoperative treatment of the fracture with a thoracolubar orthosis MRI lumbar spine showeda compression fracture of the L1 vertebral body with slight retropulsion as above with only mild stenosis. The patient may be a candidate for kyphoplasty if clinically indicated Continue nonoperative treatment of the fracture with a thoracolubar orthosis SCALP laceration Left savanah to scalp. Wash daily with soap and water. Recommend removal in 10 -14 days NASAL FRACTURES OMFS consulted Awaiting plan care for nasal fractures LEFT pubic bone and sacral fxs w/ hemorrhage Orthopedics consulted PT and OT ordered Await weightbearing status from orthopedics RIGHT 2nd metacarpal fx (non-op) LEFT 5th metacarpal fx (non-op) Hand surgery consulted and assisting in management and care Nonoperative management at this time Narcotic analgesics for pain management Pulmonary: aggressive pulmonary toilette, nasotracheal suction, and breathing treatments with nebulizers. Daily PT and OT Renal: Continue to monitor closely urine output, BUN and creatinine Endocrine: Continue to Monitor serial Acu checks and SSI as needed in detail ID continue to monitor for signs of infection Continue Protonix for stress ulcer prophylaxis Continue Chris hose and SCD's for DVT prophylaxis The exam, history, and the medical decision-making described in the above note were completed with the assistance of the mid-level provider. I reviewed and agree with the findings presented. I attest that I had a [id number] encounter with the patient on the same day, and personally performed and documented my assessment and findings in the medical record.
[2017-10-12] MEDS: Melatonin 5 MG Tablet PO PRN (20:33)
[2017-10-13 04:39] LABS: Anion Gap 6 meq/L (5-15); Baso % (Auto) 0.6 % (0.0-2.0); Blood Urea Nitrogen 15 mg/dL (7-18); Calcium 8.5 mg/dL (8.5-10.1); Carbon Dioxide 30.1 meq/L (21.0-32.0); Chloride 107 meq/L (98-107); Eos # (Auto) 0.2 th/mm3 (0.0-0.4); Eos % (Auto) 3.6 % (0.0-4.0); Glomerular Filtration Rate Greater Than 89 mL/min (>89); Glucose,Random 110 mg/dL (74-106); Hematocrit 25.9 % (35.0-46.0); Hemoglobin 8.7 gm/dL (11.6-15.3); Lymph # (Auto) 1.1 th/mm3 (1.0-4.8); Lymph % (Auto) 16.9 % (9.0-44.0); Mean Corpuscular HGB Conc 33.4 % (32.0-36.0); Mean Corpuscular Hemoglobin 28.5 pg (27.0-34.0); Mean Corpuscular Volume 85.3 fL (80.0-100.0); Mean Platelet Volume 8.2 fL (7.0-11.0); Mono # (Auto) 0.4 th/mm3 (0.0-0.9); Mono % (Auto) 6.6 % (0.0-8.0); Neut # (Auto) 4.5 th/mm3 (1.8-7.7); Neut % (Auto) 72.3 % (16.0-70.0); Platelet Count 228 th/mm3 (150-450); Potassium 4.1 meq/L (3.5-5.1); Red Blood Count 3.04 mil/mm3 (4.00-5.30); Red Cell Distribution Width 14.8 % (11.6-17.2); Sodium 143 meq/L (136-145); White Blood Count 6.3 th/mm3 (4.0-11.0)
[2017-10-13] MEDS: Lidocaine 5% Patch T-DERMAL SCH (09:06)
[2017-10-13] MEDS: Senna/Docusate Sodium 8.6/50 MG Tablet PO SCH ×2 (09:06→20:54)
[2017-10-13] MEDS: Enoxaparin Inj 40 MG/0.4 ML Syringe SQ SCH (09:06)
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
--- NOTE | 2017-10-13 10:39 | P.DCO ---
- Physical Therapy Order: Evaluate and treat, Improve ambulation, Strength and gait training - Occupational Therapy Order: Evaluate and treat, Improve ADL, Gross motor coordination - Home Health Nursing Order: Medical education, Signs/symptoms of disease process - Certification I have seen patient Anuja Covarrubias on 10/13/17. My clinical findings support the need for the requested home health care services because: Limited mobility due to disease progression, Deconditioned with increased weakness, Medication compliance is questionable, Limited ability to care for self, High risk of falls I certify that my clinical findings support that this patient is homebound because: Post-op weakness, Unsteady gait/balance, Unsafe to leave home unassisted, Non- ambulatory: confined to bed or chair, Unable to use public transportation
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
[2017-10-13] MEDS: Melatonin 5 MG Tablet PO PRN (21:58)
[2017-10-14] MEDS: Enoxaparin Inj 40 MG/0.4 ML Syringe SQ SCH (08:19)
[2017-10-14] MEDS: Senna/Docusate Sodium 8.6/50 MG Tablet PO SCH ×2 (08:19→20:32)
[2017-10-14] MEDS: Lidocaine 5% Patch T-DERMAL SCH (08:20)
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
[2017-10-14] MEDS: Melatonin 5 MG Tablet PO PRN (21:30)
[2017-10-15] MEDS: Enoxaparin Inj 40 MG/0.4 ML Syringe SQ SCH (08:49)
[2017-10-15] MEDS: Lidocaine 5% Patch T-DERMAL SCH (08:50)
[2017-10-15] MEDS: Senna/Docusate Sodium 8.6/50 MG Tablet PO SCH (08:51)
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
== END 2017-10-15 19:41 | disposition home health service (06) ==
LOC: NEPI 17:43 → NEDA 18:44 → EDBD 18:44 → N03 18:47 → N06 10-10 10:27
PROVIDERS: ADMIT Surgery; ATTEND Surgery